=== PATIENT | male | born 1940 | race Caucasian/White ===

== ENCOUNTER 2016-09-27 09:00 | Emergency (ER) | payer BC, MEDICARE ==
[~2016-09-27] VITALS: Ht 175.2 cm; Wt 104.3 kg
[~2016-09-27 09:00] MED LIST: HYDR12.5C PO; LISINOPRIL10 MG PO; NORCO 325 MG-51 TAB PO; SINGULAIR10 MG PO; VITAMIN D32000 IU PO
[2016-09-27] MEDS ORDERED: ASPIR LOW81 MG PO (09:10)
[2016-09-27] MEDS ORDERED: TERAZOSIN HCL5 M1 PO (09:11)
[2016-09-27] MEDS ORDERED: GOOD NEIGHBOR L10 MG PO (09:11)
[2016-09-27] MEDS ORDERED: CASODEX50 MG PO (09:11)
[2016-09-27] MEDS ORDERED: TAMSULOSIN HCL0.4 MG PO (09:12)
[2016-09-27] MEDS ORDERED: LUPRON DEPOT22.5 MG IM (09:13)
== END 2016-09-27 10:59 | disposition home or self-care (01) ==
LOC: ED 09:00
DX: M25.562 Pain in left knee (principal); M17.12 Unilateral primary osteoarthritis, left knee; Z90.49 Acquired absence of other specified parts of digestive tract; Z79.82 Long term (current) use of aspirin

== ENCOUNTER → 2017-05-03 | Outpatient (CLI) | payer BC, MEDICARE ==
[~2017-05-03] MED LIST changes: +ASPIR LOW81 MG PO; +CASODEX50 MG PO; +GOOD NEIGHBOR L10 MG PO; +LUPRON DEPOT22.5 MG IM; +TAMSULOSIN HCL0.4 MG PO; +TERAZOSIN HCL5 M1 PO
[2017-05-03 12:49] LABS: BASO % 0.2 % (0.0-1.0); EOS # 0.2 10*3/uL (0.0-0.4); EOS % 3.7 % (1.0-4.0); HEMATOCRIT 40.8 % (42.0-52.0); HEMOGLOBIN 14.1 g/dl (14.0-18.0); LYMPH # 2.2 10*3/uL (1.3-4.4); LYMPH % 36.1 % (27.0-41.0); MEAN CELL VOLUME 92.3 fl (80.0-94.0); MEAN CORPUSCULAR HGB 31.9 pg (27.0-31.0); MEAN CORPUSCULAR HGB CONC 34.6 g/dl (33.0-37.0); MEAN PLATELET VOLUME 10.5 fl (9.6-12.3); MONO # 0.6 10*3/uL (0.1-1.0); MONO % 9.7 % (3.0-9.0); PLATELET COUNT AUTOMATED 159 10*3/uL (130-400); RED BLOOD COUNT 4.42 10*6/uL (4.50-5.90); RED CELL DISTRI WIDTH 12.8 % (0-14.5)
[2017-05-03 13:05] LABS: ALBUMIN 3.6 gm/dl (3.1-4.5); CREATININE 1.87 mg/dL (0.70-1.30)
== END | disposition home or self-care (01) ==
LOC: LAB 12:07
PROVIDERS: Internal Medicine
DX: J06.9 Acute upper respiratory infection, unspecified (principal); R07.89 Other chest pain; R79.89 Other specified abnormal findings of blood chemistry; R09.89 Other specified symptoms and signs involving the circulatory and respiratory systems; R06.02 Shortness of breath

== ENCOUNTER → 2018-07-17 | Outpatient (CLI) | payer BC, MEDICARE ==
[~2018-07-17] MED LIST changes: +ATORVASTATIN CA40 M1 PO; +CARVEDILOL3.125 MG PO; +GLUCOPHAGE500 MG PO; +LASIX40 MG PO; +METHYLPREDNISONE4 MG PO; +MULTIVITAMINS1 EAC5 PO; +PREDNISONE10 MG PO; +TRAMADOL HCL50 MG PO; +VITAMIN C250 M2 PO; +VITAMIN D32000 UNIT PO; +XARE15TA PO; +ZYLOPRIM300 MG PO
== END | disposition home or self-care (01) ==
LOC: ORTHO 01:30
DX: M16.12 Unilateral primary osteoarthritis, left hip (principal)

== ENCOUNTER 2018-08-09 15:28 | Inpatient (IN) | payer BC, MEDICARE ==
[~2018-08-09] VITALS: Ht 172.7 cm; Wt 100.7 kg
--- NOTE | ~2018-08-09 | EKG ---
[place], [place] ELECTROCARDIOGRAM REPORT NAME: LESLEY FRAIRE UNIT #: [id number] ROOM: 528 DOCTOR: CHEMA DRAFT REPORT BIRTHDATE: [birth year] [facility] Test Date: 2018-08-09 Test Time: 16:03:29 Pat Name: LESLEY FRAIRE Department: Room: 528 Gender: M Latin Professor: : 1940 Requested By: MARY STEVENS Order Number: [id number] Reading MD: Jon Ibrahim MD Measurements Intervals [place] Rate: 82 P: 38 OR: 149 QRS: -19 QRSD: 76 T: 15 QT: 367 QTc: 429 Interpretive Statements Sinus rhythm Borderline left axis deviation Abnormal R-wave progression, early transition Abnrm T, consider ischemia, anterolateral lds Electronically Signed On 08-10-2018 8:58:31 PDT by Jon Ibrahim MD CM:EKGRPT:ELECTROCARDIOGRAM REPORT [id number] MARY BEAR DRAFT REPORT MARY STEVENS M.D.
--- NOTE | ~2018-08-09 | CON ---
[place], [place] REPORT OF CONSULTATION NAME: LESLEY FRAIRE UNIT #: [id number] ROOM: 528 DOCTOR: SUGEY DEL VALLE MD BIRTHDATE: [birth year] DOS: 08/11/2018 HISTORY OF PRESENT ILLNESS: The patient is a 78-year-old -Portuguese gentleman with history of essential hypertension, recently diagnosed diabetes mellitus and prostate cancer. He was admitted to this hospital a couple of weeks ago because of DVT of the left leg and that has been treated with Xarelto. He did not have pulmonary embolism. He was seen by Dr. Ibrahim in his office. At that time, he was complaining of shortness of breath of 3 days' duration. He did not have any cough, fever or chills and no acute chest pain or chronic chest discomfort with exertion or at rest. He had not had any palpitation, dizziness, loss of consciousness or orthopnea. Some swelling in the legs was reported. He had a CT angio to exclude pulmonary embolism as a cause of shortness of breath and he had no pulmonary embolism. 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 PAST MEDICAL HISTORY: Includes prostate cancer and also BPH, essential hypertension, left leg DVT diagnosed recently and also had many years ago following an accident, GERD, squamous cell carcinoma. He had amnesia many years ago and was transferred to [place] where he tells me that he was told of a minor stroke. SOCIAL HISTORY: He quit smoking about 45 years ago, does not use alcoholic beverages. He has been working as a highway truck driver. He is . FAMILY HISTORY: Negative for premature coronary artery disease. HOME MEDICATIONS: Include rivaroxaban 15 mg b.i.d., tamsulosin/Flomax 0.4 mg daily, terazosin 5 mg daily, tramadol 1 tablet t.i.d., hydrochlorothiazide 12.5 mg daily, furosemide 40 mg daily, allopurinol 300 mg at night. PHYSICAL EXAMINATION: GENERAL: This reveals a patient who is moderately obese. He is not cyanotic, no jaundiced. There is no pallor. VITAL SIGNS: Pulse is regular at 72, blood pressure 139/79. NECK: JVP is normal. AJR appears to be negative. There is no carotid bruit. HEART: There is no cardiomegaly, no murmurs are present. There is no rub. He has excellent pedal pulses and 2+ pretibial and bipedal edema. RESPIRATORY: He is tachypneic at rest, even the ECG tech noted this, although he does not feel he is short of breath. Percussion note is normal. Auscultation with good breath sounds with a few right basal crackles. ABDOMEN: Large, supple, nontender. Liver is not enlarged. There is no abnormal mass. Bowel sounds are normal. There is no abdominal bruit. LABORATORY DATA: I reviewed the chest x-ray, which shows no pulmonary edema, but there is probably left pleural effusion, although the radiologist does not report any abnormality. CT angio demonstrated apical aneurysm as mentioned above. [place], [place] REPORT OF CONSULTATION NAME: LESLEY FRAIRE UNIT #: [id number] ROOM: 528 DOCTOR: SUGEY DEL VALLE MD BIRTHDATE: [birth year] An ECG done 2 days ago demonstrated normal sinus rhythm and symmetrically inverted T waves in V1-V6. An ECG done today shows no changes of the abnormality seen on the previous electrocardiogram. LABORATORY DATA: Troponin I level is 0.047, 0.04 being upper normal range. Hemoglobin 13.7 g/dL, platelets 128,000. There were 246 two days ago. BUN is 33, creatinine 1.05, potassium 4.1, blood glucose 200 mg/dL. IMPRESSION: 1. 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 However, at this age with risk factors, myocardial infarction is most likely the cause of this abnormality detected on CT angio. He also has an abnormal EKG with symmetrical inverted T waves, which suggests anterior wall ischemia, possible left anterior descending artery stenosis of significance. 2. Dyspnea on exertion and even at rest that is noted has been present for about one year and it may be from ischemic cardiomyopathy or from diastolic dysfunction of the left ventricle. He does not have any underlying lung disease. 3. Deep venous thrombosis of the left leg is being treated appropriately and he does not have any obvious evidence of pulmonary embolism. I discussed these findings with the patient and also with Dr. Jon Ibrahim and I am of the opinion that this patient should undergo left heart catheterization with selective coronary angiogram, right transradial approach will be used and should any significant lesion be identified and if it is amenable to percutaneous treatment, it will be done at that same setting. I discussed the risks and the benefits including CVA, MD, , hematoma, vascular injury and renal insufficiency with this patient. He understands and would like to proceed. I thank you for this consult. SUGEY DEL VALLE MD CM:CONSTR:REPORT OF CONSULTATION 0840 08/11/18 1159 interface
--- NOTE | ~2018-08-09 | EKG ---
[place], [place] ELECTROCARDIOGRAM REPORT NAME: LESLEY FRAIRE UNIT #: [id number] ROOM: 528 DOCTOR: EPIPHANY DRAFT REPORT BIRTHDATE: [birth year] [facility] Test Date: 2018-08-11 Test Time: 12:51:11 Pat Name: LESLEY FRAIRE Department: Room: 528 1 Gender: M Education Managers: CHRIS : 1940 Requested By: JOMAR TILLEY Order Number: [id number] Reading MD: Shruthi Dickinson MD Measurements Intervals [place] Rate: 86 P: 40 GA: 140 QRS: -25 QRSD: 77 T: 87 QT: 371 QTc: 444 Interpretive Statements Sinus rhythm Borderline left axis deviation Abnormal R-wave progression, early transition Abnrm T, consider ischemia, anterolateral lds Compared to ECG 08/09/2018 16:03:29 No significant changes Electronically Signed On 08-13-2018 14:28:21 PDT by Shruthi Dickinson MD CM:EKGRPT:ELECTROCARDIOGRAM REPORT [id number] JOMAR TILLEY MD EPIPHANY DRAFT REPORT JOMAR TILLEY MD
--- NOTE | ~2018-08-09 | PR ---
[place], [place] PROGRESS NOTE [id number] UNIT #: [id number] ROOM: 528 DOCTOR: SUGEY DEL VALLE MD BIRTHDATE: [birth year] DOS: 08/12/2018 SUBJECTIVE: The patient was seen by me yesterday and was discussed with Dr. Ibrahim. He has apical aneurysm of the left ventricle. He has exertional shortness of breath and some more chest symptoms as well. He is on oxygen and is still mildly short of breath. Normal JVP. OBJECTIVE: EXTREMITIES: No edema in lower extremities. LUNGS: Clear. CARDIOVASCULAR: No obvious murmurs. VITAL SIGNS: Pulse is 88 and regular, blood pressure 122/72. NECK: Normal JVP. IMPRESSION: The patient has exertional shortness of breath and abnormal left ventricle. An echocardiogram is being done tomorrow and he will be transferred to [facility] tomorrow for a left heart catheterization and selective coronary angiogram. I discussed this with his son and daughter who were present in the room. SUGEY DEL VALLE MD CM:PNTRANS [id number] SUGEY DEL VALLE MD 08/13/18 0138 interface
--- NOTE | ~2018-08-09 | EKG ---
[place], [place] ELECTROCARDIOGRAM REPORT NAME: LESLEY FRAIRE UNIT #: [id number] ROOM: 528 DOCTOR: CHEMA DRAFT REPORT BIRTHDATE: [birth year] [facility] Test Date: 2018-08-11 Test Time: 08:20:51 Pat Name: LESLEY FRAIRE Department: Room: 528 1 Gender: M Carpenter Refrigerator: SAMIRA : 1940 Requested By: SUGEY DICKINSON Order Number: [id number] Reading MD: Sugey Dickinson MD Measurements Intervals [place] Rate: 77 P: 48 CT: 134 QRS: -13 QRSD: 74 T: 54 QT: 385 QTc: 436 Interpretive Statements Sinus rhythm Abnormal R-wave progression, early transition Nonspecific T abnormalities, anterior leads Compared to ECG 08/09/2018 16:03:29 T-wave abnormality now present Possible ischemia no longer present Electronically Signed On 08-13-2018 14:28:11 PDT by Sugey Dickinson MD CM:EKGRPT:ELECTROCARDIOGRAM REPORT 1428 SUGEY DICKINSON MD EPIPHANY DRAFT REPORT SUGEY DICKINSON MD
[~2018-08-09 15:28] MED LIST changes: -ATORVASTATIN CA40 M1 PO; -CARVEDILOL3.125 MG PO; -GLUCOPHAGE500 MG PO; -PREDNISONE10 MG PO
[2018-08-09 15:36] VITALS: BP 137/82
[2018-08-09 16:11] LABS: HEMATOCRIT 44.4 % (42.0-52.0); HEMOGLOBIN 15.5 g/dl (14.0-18.0); MEAN CELL VOLUME 91.5 fl (80.0-94.0); MEAN CORPUSCULAR HGB CONC 34.9 g/dl (33.0-37.0); MEAN PLATELET VOLUME 10.3 fl (9.6-12.3); PLATELET COUNT AUTOMATED 146 10*3/uL (130-400); RED BLOOD COUNT 4.85 10*6/uL (4.50-5.90); RED CELL DISTRI WIDTH 13.7 % (0-14.5); WHITE BLOOD COUNT 9.5 10*3/uL (4.8-10.8)
[2018-08-09 16:24] LABS: ACT PARTIAL THROMBO TIME 24.7 SECONDS (20.0-32.1); INTERNATIONAL NORM RATIO 1.1 (2.0-3.5)
[2018-08-09 16:32] LABS: ALBUMIN 3.3 gm/dl (3.1-4.5); CREATININE 1.58 mg/dL (0.70-1.30); POTASSIUM 4.4 mmol/L (3.5-5.1); TOTAL CELLS COUNTED 100 #CELLS; TOTAL PROTEIN 6.7 gm/dL (6.4-8.2)
[2018-08-09 16:33] LABS: PLATELET SUFFICIENCY NORMAL (NORMAL)
[2018-08-09 16:40] VITALS: BP 136/82
[2018-08-09 17:45] VITALS: BP 136/84
[2018-08-09 18:45] VITALS: BP 134/80
[2018-08-09 19:40] VITALS: BP 134/80
[2018-08-09 20:39] VITALS: BP 140/73
[2018-08-10 00:10] VITALS: BP 138/70
--- NOTE | 2018-08-10 00:10 | NUR ---
A 78, admitted to , under the services of JOMAR Montalvo MD with a diagnosis of HYPERGLYCEMIA, DEHYDRATION. Chief complaint is SOB. Patient arrived via bed from ER. Monitor applied. Initial assessment completed. Vital signs taken and recorded. JOMAR MONTALVO MD notified of admission to the unit. Orders received. See assessment for past medical history, medications and allergies. Patient and/or family oriented to unit. [facility] visitation policy reviewed. Clothing/patient valuable form completed. ANNA PAPPAS
[2018-08-10] MEDS ORDERED: PREDNISONE10 MG PO (00:41)
--- NOTE | 2018-08-10 00:50 | NUR ---
NOTIFIED DR BAZAN OF PATIENTS BSG 506. STATED TO GIVE DOSE OF SLIDING SCALE NOW.
[2018-08-10 02:51] LABS: BILIRUBIN NEGATIVE (NEGATIVE); BLOOD TRACE-INTACT (NEGATIVE); CLARITY CLEAR (CLEAR); COLOR YELLOW (YELLOW); GLUCOSE 3+ (NEGATIVE); KETONE NEGATIVE (NEGATIVE); LEUKO ESTERASE NEGATIVE (NEGATIVE); NITRITE NEGATIVE (NEGATIVE); PH 5.5 (5.0-9.0); UROBILINOGEN 0.2 E.U./dl (0.2-1.0)
[2018-08-10 03:09] LABS: RBC 0-2 rbc/hpf (0-2); WBC 0-2 wbc/hpf (0-5)
[2018-08-10 03:37] LABS: BASO % 0.1 % (0.0-1.0); EOS # 0.1 10*3/uL (0.0-0.4); EOS % 0.8 % (1.0-4.0); HEMATOCRIT 39.7 % (42.0-52.0); HEMOGLOBIN 13.7 g/dl (14.0-18.0); LYMPH # 1.4 10*3/uL (1.3-4.4); LYMPH % 17.4 % (27.0-41.0); MEAN CELL VOLUME 94.1 fl (80.0-94.0); MEAN CORPUSCULAR HGB 32.5 pg (27.0-31.0); MEAN CORPUSCULAR HGB CONC 34.5 g/dl (33.0-37.0); MEAN PLATELET VOLUME 9.9 fl (9.6-12.3); MONO # 0.6 10*3/uL (0.1-1.0); MONO % 7.5 % (3.0-9.0); NEUT # 5.9 10*3/uL (2.3-7.9); NEUT % 71.4 % (47.0-73.0); PLATELET COUNT AUTOMATED 128 10*3/uL (130-400); RED BLOOD COUNT 4.22 10*6/uL (4.50-5.90); RED CELL DISTRI WIDTH 13.9 % (0-14.5); WHITE BLOOD COUNT 8.3 10*3/uL (4.8-10.8)
[2018-08-10 03:53] LABS: ALBUMIN 2.6 gm/dl (3.1-4.5); ALKALINE PHOSPHATASE 41 U/L (45-117); BUN 33 mg/dl (7-24); CHLORIDE 106 mmol/L (98-107); CHOLESTEROL 163 mg/dL (<200); HDL CHOLESTEROL 43 mg/dl (40-60); LDL CHOLESTEROL 82 mg/dL (9-159); PHOSPHOROUS 3.1 mg/dL (2.5-4.9); POTASSIUM 3.9 mmol/L (3.5-5.1); SGOT/AST 5 IU/L (3-35); SGPT/ALT 33 U/L (12-78); SODIUM 141 mmol/L (136-145); TOTAL PROTEIN 5.4 gm/dL (6.4-8.2); TRIGLYCERIDES 191 mg/dl (<150); VLDL CHOLESTEROL 38 mg/dL (6-40)
[2018-08-10 03:55] LABS: FREE T4 0.91 ng/dl (0.76-1.46)
[2018-08-10 04:00] LABS: THYROID STIM HORMONE (HS) 0.574 uIU/ml (0.358-4.75)
[2018-08-10 06:51] LABS: VITAMIN D, 25-HYDROXY 36.9 ng/mL (30-100)
[2018-08-10 08:00] VITALS: BP 118/78
--- NOTE | 2018-08-10 10:48 | NUR ---
DR RUIZ NOTIFIED OF CONSULT.
[2018-08-10 12:00] VITALS: BP 133/67
[2018-08-10 16:00] VITALS: BP 138/72
--- NOTE | 2018-08-10 17:57 | NUR ---
TWO TYLENOL GIVEN FOR A HEADACHE.
[2018-08-10 20:00] VITALS: BP 143/77
[2018-08-11] VITALS: BP 139/79
[2018-08-11 07:40] LABS: CHLORIDE 108 mmol/L (98-107); POTASSIUM 4.1 mmol/L (3.5-5.1); SODIUM 139 mmol/L (136-145)
[2018-08-11 07:41] LABS: BUN 33 mg/dl (7-24); CREATININE 1.05 mg/dL (0.70-1.30)
[2018-08-11 08:00] VITALS: BP 128/70; BP 136/86
--- NOTE | 2018-08-11 08:00 | NUR ---
Patient resting quietly with no c/o discomfort. Respirations easy and regular. Vital signs stable. No overt distress. PT APPEARS DYSPNEIC AT REST BUT STATES THIS IS NORMAL FOR HIM AND HE DOES NOT WEAR HOME O2. YANNICK MERCHANT
--- NOTE | 2018-08-11 08:15 | NUR ---
DR DEL VALLE IN TO SEE PT.
[2018-08-11 12:00] VITALS: BP 120/84
--- NOTE | 2018-08-11 12:43 | NUR ---
DR TILLEY NOTIFIED OF R SIDED CP. NEW ORDERS RECEIVED.
--- NOTE | 2018-08-11 13:12 | NUR ---
MEDICATED WITH SL NITRO ORDERED FOR R SIDED CP.
--- NOTE | 2018-08-11 13:40 | NUR ---
DR DEL VALLE NOTIFIED OF R SIDED SHARP CHEST PAIN RELIEVED AFTER SL NITRO, STAT EKG THAT IS UNCHANGED FROM PREVIOUS 2 AND AN UNREMARKABLE STAT TROPONIN. HE STATES CONTINUE CURRENT PLAN OF CARE.
[2018-08-11 16:00] VITALS: BP 126/68
--- NOTE | 2018-08-11 16:00 | NUR ---
Patient resting quietly with no c/o discomfort. Respirations easy and regular. Vital signs stable. No overt distress. YANNICK MERCHANT
[2018-08-11 20:00] VITALS: BP 139/56
[2018-08-12] VITALS: BP 132/65
--- NOTE | 2018-08-12 03:14 | NUR ---
PATIENT IS RESTING WITH EYES CLOSED, EASY RESPIRATIONS AND NO S/S OF DISTRESS/PAIN AT THIS TIME
--- NOTE | 2018-08-12 03:15 | NUR ---
Shift chart check completed.
[2018-08-12 06:31] LABS: HEMATOCRIT 38.7 % (42.0-52.0); HEMOGLOBIN 13.3 g/dl (14.0-18.0); MEAN CELL VOLUME 94.4 fl (80.0-94.0); MEAN CORPUSCULAR HGB 32.4 pg (27.0-31.0); MEAN CORPUSCULAR HGB CONC 34.4 g/dl (33.0-37.0); MEAN PLATELET VOLUME 10.4 fl (9.6-12.3); PLATELET COUNT AUTOMATED 109 10*3/uL (130-400); RED CELL DISTRI WIDTH 13.9 % (0-14.5); WHITE BLOOD COUNT 6.7 10*3/uL (4.8-10.8)
[2018-08-12 06:37] LABS: BUN 29 mg/dl (7-24); CHLORIDE 105 mmol/L (98-107); CREATININE 1.08 mg/dL (0.70-1.30); POTASSIUM 4.1 mmol/L (3.5-5.1); SODIUM 138 mmol/L (136-145)
--- NOTE | 2018-08-12 07:17 | NUR ---
BLOOD SUGAR OBTAINED FROM AM VENOUS LAB DRAW AND WAS 201 COVERAGE GIVEN OF 3 UNITS INSULIN COVERAGE PER SLIDING SCALE.
[2018-08-12 08:00] VITALS: BP 122/72
[2018-08-12 08:01] LABS: PLATELET SUFFICIENCY LOW (NORMAL); POLYCHROMASIA SLIGHT; TOTAL CELLS COUNTED 100 #CELLS
--- NOTE | 2018-08-12 09:00 | NUR ---
Pot Room Supervisor in to talk to patient. Patient states lives at home with his . There are 0 steps in the home. Physician: Dr. Jon Ibrahim Pharmacy: [facility] Home health services: none Patient's level of ADLs: MINIMAL ASSIST Patient has working utilities: yes DME: occasionally uses a cane Follow-up physician's appointment after d/c: he prefers to make his own follow up appt after discharge Does patient want to access PORTAL?: no Discharge plan discussed with patient. He lives at home with his . He is independent in his ADLs and ambulation. Discussed home health care services and he is unsure of any home needs at this time. When medically stable he will be discharged to home. DIYA LEIJA
[2018-08-12 12:00] VITALS: BP 149/71
--- NOTE | 2018-08-12 14:27 | NUR ---
PHYSICAL THERAPY Physical therapy in to assess patient for evaluation. Patient states he is 100% independent prior to and at this time. Patient reports no need for physical therapy. Destinee Perez, PT, DPT
--- NOTE | 2018-08-12 15:34 | NUR ---
Occupational Therapy referral received and OT offered to patient on 5. Patient reports that he is independent in all ADLs and functional mobility and does not need any OT at this time. Discharge OT referral. Mariann Shepherd OTR/Sb
[2018-08-12 16:00] VITALS: BP 150/80
[2018-08-12 20:00] VITALS: BP 144/67
[2018-08-13] VITALS: BP 141/84
[2018-08-13] MEDS ORDERED: ATORVASTATIN CA40 M1 PO (02:00)
[2018-08-13] MEDS ORDERED: CARVEDILOL3.125 MG PO (02:00)
[2018-08-13] MEDS ORDERED: GLUCOPHAGE500 MG PO (02:00)
--- NOTE | 2018-08-13 02:01 | NUR ---
CALLED DR JOEL TO LET HIM KNOW THAT THE PATIENT STILL DID NOT HAVE A DISCHARGE ORDER FOR HIS TRANSFER.
--- NOTE | 2018-08-13 05:02 | NUR ---
Discharge instructions reviewed with patient/family. Patient receptive and verbalizes understanding. Follow-up care arranged. Written instructions given to patient/family. PATIENT TAKEN FROM FLOOR VIA AMBULANCE. NO S/S OF DISTRESS. MARILIN IVERSON
== END 2018-08-13 05:02 | disposition other institution (70) | DRG 871 ==
LOC: ED 15:28 → 5E 22:34 → EDHOLD 22:34 → 5E 22:34
PROVIDERS: Emergency Medicine; Family Medicine; ADMIT Internal Medicine
DX: A41.9 Sepsis, unspecified organism (principal); J18.9 Pneumonia, unspecified organism; E43 Unspecified severe protein-calorie malnutrition; I21.4 Non-ST elevation (NSTEMI) myocardial infarction; N17.0 Acute kidney failure with tubular necrosis; E87.1 Hypo-osmolality and hyponatremia; I25.3 Aneurysm of heart; E86.0 Dehydration; M1A.9XX0 Chronic gout, unspecified, without tophus (tophi); I12.9 Hypertensive chronic kidney disease with stage 1 through stage 4 chronic kidney disease, or unspecified chronic kidney disease; E78.5 Hyperlipidemia, unspecified; M16.12 Unilateral primary osteoarthritis, left hip; E78.2 Mixed hyperlipidemia; N40.0 Benign prostatic hyperplasia without lower urinary tract symptoms; N18.3 Chronic kidney disease, stage 3 (moderate); J45.909 Unspecified asthma, uncomplicated; C61 Malignant neoplasm of prostate; E11.22 Type 2 diabetes mellitus with diabetic chronic kidney disease; E66.9 Obesity, unspecified; R81 Glycosuria; Z86.718 Personal history of other venous thrombosis and embolism; Z86.711 Personal history of pulmonary embolism; Z87.891 Personal history of nicotine dependence; Z82.3 Family history of stroke; Z80.49 Family history of malignant neoplasm of other genital organs; Z79.899 Other long term (current) drug therapy; Z85.46 Personal history of malignant neoplasm of prostate; Z90.49 Acquired absence of other specified parts of digestive tract; Z82.49 Family history of ischemic heart disease and other diseases of the circulatory system; Z83.3 Family history of diabetes mellitus; Z79.4 Long term (current) use of insulin; Z68.34 Body mass index [BMI] 34.0-34.9, adult

== ENCOUNTER → 2020-09-01 | Outpatient (CLI) | payer MEDICARE ==
[~2020-09-01] MED LIST changes: +ATORVASTATIN CA40 M1 PO; +CARVEDILOL3.125 MG PO; +GLUCOPHAGE500 MG PO; +PREDNISONE10 MG PO
[2020-09-01 12:24] LABS: ALBUMIN 3.6 gm/dl (3.1-4.5); ALKALINE PHOSPHATASE 61 U/L (45-117); BUN 15 mg/dl (7-24); CHLORIDE 109 mmol/L (98-107); CREATININE 1.19 mg/dL (0.70-1.30); POTASSIUM 4.3 mmol/L (3.5-5.1); SGOT/AST 20 IU/L (3-35); SGPT/ALT 43 U/L (12-78); SODIUM 143 mmol/L (136-145); URIC ACID 3.4 mg/dL (3.5-7.2)
== END | disposition home or self-care (01) ==
LOC: LAB 11:25
PROVIDERS: ATTEND Podiatrist
DX: M10.00 Idiopathic gout, unspecified site (principal); M10.9 Gout, unspecified

== ENCOUNTER → 2022-10-23 | Outpatient (CLI) | payer OTHER | END | disposition home or self-care (01) | LOC: RESCLI 09:42 | PROVIDERS: ATTEND Internal Medicine | DX: R60.0 Localized edema (principal); I82.409 Acute embolism and thrombosis of unspecified deep veins of unspecified lower extremity; K21.9 Gastro-esophageal reflux disease without esophagitis; M10.9 Gout, unspecified; N40.1 Benign prostatic hyperplasia with lower urinary tract symptoms; I12.9 Hypertensive chronic kidney disease with stage 1 through stage 4 chronic kidney disease, or unspecified chronic kidney disease; E11.22 Type 2 diabetes mellitus with diabetic chronic kidney disease; N18.30 Chronic kidney disease, stage 3 unspecified; J45.909 Unspecified asthma, uncomplicated; C61 Malignant neoplasm of prostate; M25.522 Pain in left elbow; Z98.890 Other specified postprocedural states; Z82.49 Family history of ischemic heart disease and other diseases of the circulatory system; Z88.8 Allergy status to other drugs, medicaments and biological substances; Z79.899 Other long term (current) drug therapy ==

== ENCOUNTER → 2023-07-12 | Outpatient (CLI) | payer MEDICARE ==
[2023-07-12 13:59] LABS: BASO % 0.6 % (0.0-1.0); EOS # 0.1 10*3/uL (0.0-0.4); EOS % 1.8 % (1.0-4.0); LYMPH # 2.3 10*3/uL (1.3-4.4); LYMPH % 46.5 % (27.0-41.0); MEAN CELL VOLUME 90.3 fl (80.0-94.0); MEAN CORPUSCULAR HGB 29.8 pg (27.0-31.0); MEAN PLATELET VOLUME 9.8 fl (9.6-12.3); MONO # 0.6 10*3/uL (0.1-1.0); MONO % 11.2 % (3.0-9.0); NEUT # 1.9 10*3/uL (2.3-7.9); NEUT % 38.3 % (47.0-73.0); PLATELET COUNT AUTOMATED 185 10*3/uL (130-400); RED BLOOD COUNT 4.43 10*6/uL (4.50-5.90); RED CELL DISTRI WIDTH 15.8 % (0-14.5); WHITE BLOOD COUNT 4.9 10*3/uL (4.8-10.8)
[2023-07-12 15:13] LABS: ALKALINE PHOSPHATASE 253 U/L (46-116); BUN 10 mg/dl (9-23); CHLORIDE 108 mmol/L (98-107); POTASSIUM 3.9 mmol/L (3.4-5.1); SGPT/ALT 14 U/L (5-49); TOTAL PROTEIN 6.9 gm/dL (6.0-8.0)
== END | disposition home or self-care (01) ==
LOC: LAB 13:37
PROVIDERS: ATTEND Internal Medicine
DX: R11.2 Nausea with vomiting, unspecified (principal)

== ENCOUNTER 2023-08-18 12:26 | Emergency (ER) | payer MEDICARE ==
[~2023-08-18] VITALS: Ht 172.7 cm; Wt 95.7 kg
[~2023-08-18 12:26] MED LIST changes: +ALLOPURINOL300 MG PO; +FLOMAX0.4 MG PO; +JARDIANCE10 MG PO; +LIPITOR20 MG PO; +LUPRON DEPOT11.25 MG IM; +MEDROL8 MG PO; +OMEPRAZOLE40 MG PO; +ONDANSETRON8 MG PO; +TERAZOSIN5 MG PO; +VITAMIN D350 MC3 PO; +XARELTO20 M1 PO
[2023-08-18] MEDS ORDERED: Ondansetron Hydrochloride 4 MG/2 ML VIAL IV ONE (13:20)
[2023-08-18] MEDS ORDERED: SODIUM CHLORIDE 0.9% 1,000 ML IV ONE ×2 (13:20→18:20)
[2023-08-18 13:40] LABS: HEMATOCRIT 29.4 % (42.0-52.0); MEAN CELL VOLUME 90.5 fl (80.0-94.0); MEAN CORPUSCULAR HGB 29.5 pg (27.0-31.0); MEAN CORPUSCULAR HGB CONC 32.7 g/dl (33.0-37.0); MEAN PLATELET VOLUME 9.9 fl (9.6-12.3); NUCLEATED RED BLOOD CELL 0.1 10*3/uL (0.0-0.0); NUCLEATED RED BLOOD CELL 1.9 % (0.0-0.0); PLATELET COUNT AUTOMATED 114 10*3/uL (130-400); RED BLOOD COUNT 3.25 10*6/uL (4.50-5.90); RED CELL DISTRI WIDTH 16.9 % (0-14.5); WHITE BLOOD COUNT 3.6 10*3/uL (4.8-10.8)
[2023-08-18 13:42] LABS: MANUAL DIFF REFLEX YES
[2023-08-18] MEDS ORDERED: MORPHINE Sulfate 2 MG/ML SYR IV ONE (13:45)
[2023-08-18 13:58] LABS: ALKALINE PHOSPHATASE 313 U/L (46-116); BUN 14 mg/dl (9-23); CHLORIDE 106 mmol/L (98-107); LIPASE 41 U/L (12-53); POTASSIUM 3.5 mmol/L (3.4-5.1); SGPT/ALT 14 U/L (5-49); TOTAL PROTEIN 6.5 gm/dL (6.0-8.0)
[2023-08-18 14:03] LABS: BASOPHILS 1 % (0-1); PLATELET SUFFICIENCY LOW (NORMAL); POLYCHROMASIA SLIGHT; TOTAL CELLS COUNTED 100 #CELLS
[2023-08-18 14:04] LABS: OVALOCYTES FEW
[2023-08-18] MEDS ORDERED: CALCIUM GLUC IN NACL, ISO-OSM 100 ML IV ONE (14:10)
[2023-08-18 14:56] LABS: BILIRUBIN Negative (Negative); BLOOD Negative (Negative); CLARITY Clear (Clear); COLOR Yellow (Yellow); GLUCOSE 3+ (Negative); KETONE 2+ (Negative); LEUKO ESTERASE Negative (Negative); NITRITE Negative (Negative); SPECIFIC GRAVITY 1.015 (1.001-1.030)
[2023-08-18 15:03] LABS: RBC 0-2 rbc/hpf (0-2)
[2023-08-18] MEDS ORDERED: IOHEXOL 9 MG/ML (IODINE) ORAL SOLUTION PO ONE (16:55)
[2023-08-18] MEDS ORDERED: ONDANSETRON4 MG SL (21:03)
== END 2023-08-18 22:10 | disposition home or self-care (01) ==
LOC: ED 12:26
PROVIDERS: Internal Medicine
DX: R11.2 Nausea with vomiting, unspecified (principal); Z79.899 Other long term (current) drug therapy; Z98.890 Other specified postprocedural states; Z90.49 Acquired absence of other specified parts of digestive tract; Z87.891 Personal history of nicotine dependence

== ENCOUNTER → 2023-08-28 | Outpatient (CLI) | payer MEDICARE ==
[~2023-08-28] MED LIST changes: +ONDANSETRON4 MG SL
[2023-08-28 12:32] LABS: HEMATOCRIT 26.7 % (42.0-52.0); MEAN CORPUSCULAR HGB CONC 33.7 g/dl (33.0-37.0); MEAN PLATELET VOLUME 9.1 fl (9.6-12.3); NUCLEATED RED BLOOD CELL 0.1 10*3/uL (0.0-0.0); NUCLEATED RED BLOOD CELL 3.1 % (0.0-0.0); PLATELET COUNT AUTOMATED 90 10*3/uL (130-400); RED CELL DISTRI WIDTH 17.5 % (0-14.5); WHITE BLOOD COUNT 2.3 10*3/uL (4.8-10.8)
[2023-08-28 12:39] LABS: MANUAL DIFF REFLEX YES
[2023-08-28 12:57] LABS: ALKALINE PHOSPHATASE 318 U/L (46-116); BUN 13 mg/dl (9-23); CHLORIDE 107 mmol/L (98-107); POTASSIUM 3.2 mmol/L (3.4-5.1)
[2023-08-28 13:00] LABS: ATYPICAL LYMPHS 1 % (0-0); BASOPHILS 2 % (0-1); OVALOCYTES FEW; PLATELET SUFFICIENCY LOW (NORMAL); POLYCHROMASIA SLIGHT; TOTAL CELLS COUNTED 100 #CELLS
[2023-08-28 13:01] LABS: SCHISTOCYTES FEW
== END | disposition home or self-care (01) ==
LOC: LAB 12:12
PROVIDERS: ATTEND Radiology Radiation Oncology
DX: C61 Malignant neoplasm of prostate (principal)

== ENCOUNTER 2023-10-09 10:08 | Emergency (ER) | payer MEDICARE ==
[~2023-10-09] VITALS: Ht 172.7 cm; Wt 88.5 kg
[2023-10-09 12:14] LABS: HEMATOCRIT 27.1 % (42.0-52.0); MEAN CELL VOLUME 94.4 fl (80.0-94.0); MEAN CORPUSCULAR HGB CONC 31.7 g/dl (33.0-37.0); MEAN PLATELET VOLUME 10.9 fl (9.6-12.3); NUCLEATED RED BLOOD CELL 0.1 10*3/uL (0.0-0.0); PLATELET COUNT AUTOMATED 30 10*3/uL (130-400); RED BLOOD COUNT 2.87 10*6/uL (4.50-5.90); RED CELL DISTRI WIDTH 19.5 % (0-14.5); WHITE BLOOD COUNT 2.2 10*3/uL (4.8-10.8)
[2023-10-09 12:23] LABS: MANUAL DIFF REFLEX YES
[2023-10-09 12:34] LABS: ALKALINE PHOSPHATASE 303 U/L (46-116); BUN 25 mg/dl (9-23); CHLORIDE 107 mmol/L (98-107); SGPT/ALT 32 U/L (5-49); TOTAL PROTEIN 5.8 gm/dL (6.0-8.0)
[2023-10-09 12:41] LABS: ATYPICAL LYMPHS 2 % (0-0); BURR CELLS FEW; MICROCYTOSIS SLIGHT; PLATELET SUFFICIENCY LOW (NORMAL); TOTAL CELLS COUNTED 100 #CELLS
[2023-10-09] MEDS ORDERED: CALCIUM GLUC IN NACL, ISO-OSM 100 ML IV SCH (13:00)
[2023-10-16] MEDS ORDERED: CARAFATE1 G1 PO (15:34)
[2023-10-16] MEDS ORDERED: DEXAMETHASONE2 MG PO (15:34)
[2023-10-16] MEDS ORDERED: PERCOCET 5-3251 EACH PO (15:42)
[2023-10-16] MEDS ORDERED: REMERON15 M2 PO (15:43)
[2023-10-16] MEDS ORDERED: PROCHLORPERAZIN10 MG PO (15:43)
[2023-10-16] MEDS ORDERED: PROTONIX40 MG PO (15:45)
== END 2023-10-09 16:13 | disposition home or self-care (01) ==
LOC: ED 10:08
PROVIDERS: Internal Medicine
DX: E83.51 Hypocalcemia (principal); C79.51 Secondary malignant neoplasm of bone; Z85.46 Personal history of malignant neoplasm of prostate; Z79.899 Other long term (current) drug therapy; Z90.49 Acquired absence of other specified parts of digestive tract; Z87.891 Personal history of nicotine dependence